=== PATIENT | male | born 1975 | race American Indian/Alaskan Native ===

== ENCOUNTER 2019-11-20 22:42 | Emergency (ER) | payer SELFPAY ==
[2019-11-20] MEDS ORDERED: SODIUM CHLORIDE 0.9% 1000 ML 1,000 ML IV ONE (23:36)
[2019-11-20] MEDS ORDERED: MORPHINE 4 MG/1 ML INJ IV ONE (23:36)
[2019-11-20] MEDS ORDERED: ONDANSETRON 4 MG/2 ML INJ IV ONE (23:36)
--- NOTE | 2019-11-20 23:36 | Emergency Department Report ---
ED Abdominal Pain HPI - General Chief Complaint: Abdominal Pain Stated Complaint: ABD PAIN Time Seen by Provider: 11/20/19 23:26 Source: patient, RN notes reviewed Mode of arrival: Ambulatory Limitations: No Limitations - History of Present Illness Initial Comments: This is a 44-year-old gentleman. This patient is not known to this provider previously. The patient reports no chronic medical conditions. Patient presents to the ER with a complaint of nontraumatic left sided abdominal pain, suprapubic pain, nausea and vomiting and discomfort. He's never had this before. He has no irritative or obstructive urinary symptoms. There is no testicular pain. There is no complaint of headache, neck pain, chest pain, exertional shortness of breath, or other complaints. His symptoms are markedly improved with morphine and IV fluids. MD Complaint: abdominal pain -: Sudden Location: LLQ Severity: moderate Quality: cramping, aching Consistency: constant Improves With: medication Worsens With: movement Associated Symptoms: nausea, vomiting - Related Data Previous Rx's Medication Instructions Recorded Last Taken Type Acetaminophen [Non-Aspirin Extra 500 mg PO Q6HR PRN #30 tablet 11/21/19 Unknown Rx Strength] Ondansetron [Zofran Odt] 4 mg PO Q8HR PRN #20 tab.rapdis 11/21/19 Unknown Rx Tamsulosin [Flomax] 0.4 mg PO QDAY #30 cap 11/21/19 Unknown Rx oxyCODONE [Roxicodone] 5 mg PO Q6HR PRN #15 tablet 11/21/19 Unknown Rx Allergies Allergy/AdvReac Type Severity Reaction Status Date / Time No Known Allergies Allergy Verified 11/21/19 00:34 ED Review of Systems ROS: Stated complaint: ABD PAIN Other details as noted in HPI Constitutional: malaise. denies: fever Eyes: denies: eye discharge ENT: denies: congestion Respiratory: denies: wheezing Cardiovascular: denies: chest pain, syncope Gastrointestinal: abdominal pain, nausea, vomiting. denies: hematemesis, melena Genitourinary: denies: dysuria, testicular pain Musculoskeletal: denies: back pain Skin: denies: lesions Neurological: weakness Psychiatric: anxiety Hematological/Lymphatic: denies: easy bleeding ED Past Medical Hx - Past Medical History Previous Medical History?: No - Surgical History Past Surgical History?: No - Social History Smoking Status: Never Smoker Substance Use Type: None - Medications Home Medications: Home Medications Medication Instructions Recorded Confirmed Last Taken Type Acetaminophen [Non-Aspirin Extra 500 mg PO Q6HR PRN #30 tablet 11/21/19 Unknown Rx Strength] Ondansetron [Zofran Odt] 4 mg PO Q8HR PRN #20 tab.rapdis 11/21/19 Unknown Rx Tamsulosin [Flomax] 0.4 mg PO QDAY #30 cap 11/21/19 Unknown Rx oxyCODONE [Roxicodone] 5 mg PO Q6HR PRN #15 tablet 11/21/19 Unknown Rx ED Physical Exam - General Limitations: No Limitations General appearance: alert, anxious, in distress - Head Head exam: Present: atraumatic, normocephalic - Eye Eye exam: Present: normal appearance, EOMI. Absent: nystagmus - ENT ENT exam: Present: normal exam, normal orophraynx, mucous membranes moist, normal external ear exam - Neck Neck exam: Present: normal inspection, full ROM. Absent: tenderness, meningismus - Respiratory Respiratory exam: Present: normal lung sounds bilaterally. Absent: respiratory distress - Cardiovascular Cardiovascular Exam: Present: regular rate, normal rhythm, normal heart sounds. Absent: bradycardia, tachycardia, irregular rhythm, systolic murmur, diastolic murmur, rubs, gallop - GI/Abdominal GI/Abdominal exam: Present: soft, tenderness, other (there is left lower qu adrant tenderness and suprapubic tenderness. There is no right lower quadrant tenderness. There is negative Rovsing sign. There is negative Solano's sign.). Absent: distended, guarding, rebound, rigid, pulsatile mass - Rectal Rectal exam: Present: deferred - exam: Present: normal inspection, other (there is normal testicular lie. There is normal cremasteric reflex. There is no testicular tenderness. There is no testicular swelling). Absent: testicular tenderness External exam: Present: normal external exam, other (chaperoned by nurse Maikel Vega) - Extremities Exam Extremities exam: Present: normal inspection, other (2+ pulses noted in the bilateral upper and lower extremities. The pelvis is stable. There is no long bony tenderness. The muscular compartments are soft. There is no redness, pus, streaking or erythema.). Absent: full ROM, tenderness, pedal edema, joint swelling, calf tenderness - Back Exam Back exam: Present: normal inspection, full ROM. Absent: tenderness, CVA tenderness (R), CVA tenderness (L), paraspinal tenderness, vertebral tenderness - Neurological Exam Neurological exam: Present: alert, normal gait, other (there is no facial droop. The tongue is midline. Extraocular movements are intact bilaterally. Speaking in full sentences. Hearing is grossly intact. 5 out of 5 strength bilateral upper and lower extremities. Sensation is intact to light touch bilateral upper and lower extremities.). Absent: motor sensory deficit - Psychiatric Psychiatric exam: Present: normal affect, normal mood - Skin Skin exam: Present: warm, dry, intact, normal color. Absent: rash ED Course Vital Signs 11/20/19 11/20/19 11/20/19 22:53 23:16 23:30 Temperature 98.3 F Pulse Rate 78 69 Respiratory 18 19 Rate Blood Pressure 119/86 131/79 Blood Pressure [Left] O2 Sat by Pulse 97 97 99 Oximetry 11/20/19 11/20/19 11/21/19 23:45 23:55 00:01 Temperature Pulse Rate 81 70 Respiratory 17 17 15 Rate Blood Pressure 127/84 Blood Pressure 127/84 [Left] O2 Sat by Pulse 100 100 99 Oximetry 11/21/19 11/21/19 11/21/19 00:30 01:01 01:30 Temperature Pulse Rate 76 75 74 Respiratory 25 H 14 22 Rate Blood Pressure 117/60 133/93 109/44 Blood Pressure [Left] O2 Sat by Pulse 94 98 90 Oximetry 11/21/19 01:56 Temperature Pulse Rate 63 Respiratory 24 Rate Blood Pressure Blood Pressure 135/91 [Left] O2 Sat by Pulse 97 Oximetry - Reevaluation(s) Reevaluation #1: 11/21/19 00:56 Patient feels improved. No active vomiting. CT scan confirms a small left- sided 2 mm stone. Patient is suitable for trial of outpatient management at this time. We discussed the significance of CAT scan findings, laboratory studies, return precautions. ED Medical Decision Making - Lab Data Result diagrams: 11/20/19 23:12 11/20/19 23:12 Vital Signs 11/20/19 11/20/19 11/20/19 22:53 23:16 23:30 Temperature 98.3 F Pulse Rate 78 69 Respiratory 18 19 Rate Blood Pressure 119/86 131/79 Blood Pressure [Left] O2 Sat by Pulse 97 97 99 Oximetry 11/20/19 11/20/19 11/21/19 23:45 23:55 00:01 Temperature Pulse Rate 81 70 Respiratory 17 17 15 Rate Blood Pressure 127/84 Blood Pressure 127/84 [Left] O2 Sat by Pulse 100 100 99 Oximetry Lab Results 11/20/19 11/20/19 11/20/19 Range/Units 23:12 23:12 23:12 WBC 16.8 H (4.5-11.0) K/mm3 RBC 5.37 H (3.65-5.03) M/mm3 Hgb 16.2 H (11.8-15.2) gm/dl Hct 47.6 H (35.5-45.6) % MCV 89 (84-94) fl MCH 30 (28-32) pg MCHC 34 (32-34) % RDW 13.7 (13.2-15.2) % Plt Count 250 (140-440) K/mm3 Lymph % (Auto) 10.1 L (13.4-35.0) % [place] % (Auto) 6.7 (0.0-7.3) % Eos % (Auto) 2.2 (0.0-4.3) % Baso % (Auto) 0.3 (0.0-1.8) % Lymph # 1.7 (1.2-5.4) K/mm3 [place] # 1.1 H (0.0-0.8) K/mm3 Eos # 0.4 (0.0-0.4) K/mm3 Baso # 0.0 (0.0-0.1) K/mm3 Seg Neutrophils % 80.7 H (40.0-70.0) % Seg Neutrophils # 13.6 H (1.8-7.7) K/mm3 Sodium 139 (137-145) mmol/L Potassium 3.3 L (3.6-5.0) mmol/L Chloride 99.3 (98-107) mmol/L Carbon Dioxide 20 L (22-30) mmol/L Anion Gap 23 mmol/L BUN 20 (9-20) mg/dL Creatinine 1.7 H (0.8-1.5) mg/dL Estimated GFR 53 ml/min BUN/Creatinine Ratio 12 % Glucose 166 H (75-100) mg/dL Calcium 9.4 (8.4-10.2) mg/dL Magnesium 2.00 (1.7-2.3) mg/dL Total Bilirubin 0.30 (0.1-1.2) mg/dL AST 32 (5-40) units/L ALT 33 (7-56) units/L Alkaline Phosphatase 60 (35-129) units/L Total Creatine Kinase 445 H (55-170) units/L Total Protein 7.8 (6.3-8.2) g/dL Albumin 4.6 (3.9-5) g/dL Albumin/Globulin Ratio 1.4 % Lipase 24 (13-60) units/L Urine Color (Yellow) Urine Turbidity (Clear) Urine pH (5.0-7.0) Ur Specific [place] (1.003-1.030) Urine Protein (Negative) mg/dL Urine Glucose (UA) (Negative) mg/dL Urine Ketones (Negative) mg/dL Urine Blood (Negative) Urine Nitrite (Negative) Urine Bilirubin (Negative) Urine Urobilinogen (<2.0) mg/dL Ur Leukocyte Esterase (Negative) Urine WBC (Auto) (0.0-6.0) /HPF Urine RBC (Auto) (0.0-6.0) /HPF Urine Mucus /HPF 11/20/19 Range/Units 23:50 WBC (4.5-11.0) K/mm3 RBC (3.65-5.03) M/mm3 Hgb (11.8-15.2) gm/dl Hct (35.5-45.6) % MCV (84-94) fl MCH (28-32) pg MCHC (32-34) % RDW (13.2-15.2) % Plt Count (140-440) K/mm3 Lymph % (Auto) (13.4-35.0) % [place] % (Auto) (0.0-7.3) % Eos % (Auto) (0.0-4.3) % Baso % (Auto) (0.0-1.8) % Lymph # (1.2-5.4) K/mm3 [place] # (0.0-0.8) K/mm3 Eos # (0.0-0.4) K/mm3 Baso # (0.0-0.1) K/mm3 Seg Neutrophils % (40.0-70.0) % Seg Neutrophils # (1.8-7.7) K/mm3 Sodium (137-145) mmol/L Potassium (3.6-5.0) mmol/L Chloride (98-107) mmol/L Carbon Dioxide (22-30) mmol/L Anion Gap mmol/L BUN (9-20) mg/dL Creatinine (0.8-1.5) mg/dL Estimated GFR ml/min BUN/Creatinine Ratio % Glucose (75-100) mg/dL Calcium (8.4-10.2) mg/dL Magnesium (1.7-2.3) mg/dL Total Bilirubin (0.1-1.2) mg/dL AST (5-40) units/L ALT (7-56) units/L Alkaline Phosphatase (35-129) units/L Total Creatine Kinase (55-170) units/L Total Protein (6.3-8.2) g/dL Albumin (3.9-5) g/dL Albumin/Globulin Ratio % Lipase (13-60) units/L Urine Color Julissa (Yellow) Urine Turbidity Cloudy (Clear) Urine pH 5.0 (5.0-7.0) Ur Specific [place] 1.026 (1.003-1.030) Urine Protein 30 mg/dl (Negative) mg/dL Urine Glucose (UA) Neg (Negative) mg/dL Urine Ketones Neg (Negative) mg/dL Urine Blood Lg (Negative) Urine Nitrite Neg (Negative) Urine Bilirubin Neg (Negative) Urine Urobilinogen < 2.0 (<2.0) mg/dL Ur Leukocyte Esterase Neg (Negative) Urine WBC (Auto) 12.0 H (0.0-6.0) /HPF Urine RBC (Auto) 124.0 (0.0-6.0) /HPF Urine Mucus 2+ /HPF - Radiology Data Radiology results: pending, report reviewed, image reviewed Print Report Referring Physician: COLLIN CHAVEZ Patient Name: JADEN WHITE Date of : 1975 Sex: Male Report Date: 2019-11-21 Report Status: Finalized Findings [facility] [address] [place] [address] Cat Scan Report Signed Patient: JADEN WHITE MR#: [id number] : 1975 Acct:[id number] Age/Sex: 44 / M ADM Date: 11/20/19 Loc: ED Attending Dr: Ordering Physician: COLLIN CHAVEZ MD Date of Service: 11/20/19 Procedure(s): CT abdomen pelvis wo con Accession Number(s): [id number] cc: COLLIN CHAVEZ MD CT ABDOMEN AND PELVIS WITHOUT IV CONTRAST INDICATION: llq pain. COMPARISON: None available. TECHNIQUE: All CT scans at this facility use dose modulation, automated exposure control, iterative reconstruction or weight based dosing, when appropriate, to reduce radiation dose to as low as reasonably achievable. FINDINGS: Lung Bases: No significant abnormality. Skeletal System: No acute abnormality. ABDOMEN: Liver: No significant abnormality. Gallbladder: No significant abnormality. Bile Ducts: No significant abnormality. Pancreas: No significant abnormality. Spleen: No significant abnormality. Adrenals: No significant abnormality. Right Kidney: There are approximately 5-6 nonobs tructing calyceal stones. No hydronephrosis. Left Kidney: There is moderate left hydronephrosis and mild left perinephric stranding. There are several nonobstructing punctate calyceal stones. Upper GI tract: No significant abnormality. Lymph Nodes: No significant adenopathy. Aorta: No significant ab normality. Additional Findings: No significant abnormality. PELVIS: Colon: No acute abnormality Urinary Bladder and Distal Ureters: There is a punctate 2 mm stone in the distal left ureter just proximal to the bladder. The bladder is unremarkable. Appendix: No significant abnormality. Lymph Nodes: No significant adenopathy. Additional Findings: None. IMPRESSION: 1. Punctate 2 mm distal left ureteral stone with moderate left hydroureteronephrosis. 2. Bilateral nephrolithiasis. All the stones are very small measuring 1-2 mm. Signer Name: Laurent Page MD Signed: 11/21/2019 12:43 AM Workstation Name: [id number] Transcribed By: NATHANIEL Dictated By: Laurent Page MD Electronically Authenticated By: Laurent Page MD Signed Date/Time: 11/21/1942 DD/ TD/TT: - Medical Decision Making Differential diagnosis, including but not limited to: Renal colic, constipation, volvulus, obstruction, inflammatory bowel disease Assessment and plan: 44-year-old gentleman with resolved left lower quadrant pain, urinalysis shows hematuria, noncontrast CT scan abdomen and pelvis demonstrates left-sided stone. The patient is afebrile with reassuring vital signs. His leukocytosis is most likely a stress reaction. Creatinine of 1.7 reviewed and appreciated, IV fluids ordered, with potassium supplementation. GFR 53. Patient had market clinical improvement, and he is suitable to follow- up with an outpatient neurology doctor for outpatient evaluation and management. Critical care attestation.: If time is entered above; I have spent that time in minutes in the direct care of this critically ill patient, excluding procedure time. ED Disposition Clinical Impression: Renal colic on left side Disposition: DC-01 TO HOME OR SELFCARE Is pt being admited?: No Does the pt Need Aspirin: No Condition: Stable Instructions: Renal Colic (ED) Additional Instructions: Take the medications as needed and/or directed. Drink 4-6 cups of water per day for the foreseeable future. For the time being, avoid consumption of Motrin, ibuprofen, Naprosyn, Aleve. Laboratory studies demonstrated red blood cells in the urine, consistent with kidney stone. Laboratory studies indicated minimal kidney impairment. Recommend patient follow up with the primary care doctor for kidney impairment within the next 2 weeks. Recommend patient follow-up with urology physician within the next 5-7 days. Patient may also follow-up with the urologist for mild kidney impairment. If taking oxycodone, do not drive, consume alcohol, or make important decisions. Please return to the emergency room right away with projectile vomiting, change in mental status, confusion, inability to tolerate liquid feeds, new, worsened or different symptoms not present on the initial emergency room evaluation, severe pain, fevers, chills. Prescriptions: Tamsulosin [Flomax] 0.4 mg PO QDAY #30 cap Acetaminophen [Non-Aspirin Extra Strength] 500 mg PO Q6HR PRN #30 tablet PRN Reason: Pain , Severe (7-10) oxyCODONE [Roxicodone] 5 mg PO Q6HR PRN #15 tablet PRN Reason: Pain Ondansetron [Zofran Odt] 4 mg PO Q8HR PRN #20 tab.rapdis PRN Reason: Nausea Referrals: LEIF WATTERS MD [Staff Physician] - 3-5 Days [facility] [Provider Group] - 3-[address] [facility] [Provider Group] - 3-5 Days
[2019-11-20 23:41] LABS: Basophils % (Auto) 0.3 % (0.0-1.8); Eosinophils # (Auto) 0.4 K/mm3 (0.0-0.4); Eosinophils % (Auto) 2.2 % (0.0-4.3); Hematocrit 47.6 % (35.5-45.6); Hemoglobin 16.2 gm/dl (11.8-15.2); Lymphocytes # (Auto) 1.7 K/mm3 (1.2-5.4); Lymphocytes % (Auto) 10.1 % (13.4-35.0); Mean Corpuscular HGB Conc 34 % (32-34); Mean Corpuscular Volume 89 fl (84-94); Monocytes # (Auto) 1.1 K/mm3 (0.0-0.8); Monocytes % (Auto) 6.7 % (0.0-7.3); Platelet Count 250 K/mm3 (140-440); Red Blood Count 5.37 M/mm3 (3.65-5.03); Red Cell Distribution Width 13.7 % (13.2-15.2)
[2019-11-21 00:03] LABS: Albumin 4.6 g/dL (3.9-5); Calcium 9.4 mg/dL (8.4-10.2)
[2019-11-21 00:26] LABS: Bilirubin,Urine NEG (Negative); Blood,Urine LG (Negative); Color,Urine Amber (Yellow); Mucus,Urine 2+ /HPF; Urobilinogen,Urine < 2.0 mg/dL (<2.0)
[2019-11-21] MEDS ORDERED: POTASSIUM CHLORIDE ER 20 MEQ TAB PO ONE (00:30)
[2019-11-21] MEDS ORDERED: SODIUM CHLORIDE 0.9% 1000 ML 1,000 ML IV ONE (00:35)
--- NOTE | 2019-11-21 00:48 | Cat Scan Report ---
CT ABDOMEN AND PELVIS WITHOUT IV CONTRAST INDICATION: llq pain. COMPARISON: None available. TECHNIQUE: All CT scans at this facility use dose modulation, automated exposure control, iterative reconstructi on or weight based dosing, when appropriate, to reduce radiation dose to as low as reasonably achieva ble. FINDINGS: Lung Bases: No significant abnormality. Skeletal System: No acute abnormality. ABDOMEN: Liver: No significant abnormality. Gallbladder: No significant abnormality. Bile Ducts: No significant abnormality. Pancreas: No significant abnormality. Spleen: No significant abnormality. Adrenals: No significant abnormality. Right Kidney: There are approximately 5-6 nonobstructing calyceal stones. No hydronephrosis. Left Kidney: There is moderate left hydronephrosis and mild left perinephric stranding. There are sev eral nonobstructing punctate calyceal stones. Upper GI tract: No significant abnormality. Lymph Nodes: No significant adenopathy. Aorta: No significant abnormality. Additional Findings: No significant abnormality. PELVIS: Colon: No acute abnormality Urinary Bladder and Distal Ureters: There is a punctate 2 mm stone in the distal left ureter just pro ximal to the bladder. The bladder is unremarkable. Appendix: No significant abnormality. Lymph Nodes: No significant adenopathy. Additional Findings: None. IMPRESSION: 1. Punctate 2 mm distal left ureteral stone with moderate left hydroureteronephrosis. 2. Bilateral nephrolithiasis. All the stones are very small measuring 1-2 mm. Signer Name: Laurent Page MD Signed: 11/21/2019 12:43 AM Workstation Name: [email or web address]
[2019-11-21] MEDS: POTASSIUM CHLORIDE 10 MEQ 10 MEQ/100 ML BAG IV SCH ×2 (00:52→01:57)
[2019-11-21] MEDS ORDERED: KETOROLAC 30 MG/1 ML INJ IV ONE (00:59)
[2019-11-21] MEDS ORDERED: HYDROmorphone 1 MG/1 ML INJ IV ONE (00:59)
[2019-11-21 03:18] VITALS: BP 102/63
== END 2019-11-21 02:55 | disposition home or self-care (01) ==
LOC: ED 22:42
DX: N23 Unspecified renal colic (principal); Z79.899 Other long term (current) drug therapy
CPT/HCPCS: 36415; 74176; 80053; 81001; 82550; 83690; 83735; 85025; 87086; 96361; 96374; 96375; 99285; J1170; J1885; J2270; J2405; J3480; J7030